=== PATIENT | male | born 1945 | race Caucasian/White ===

== ENCOUNTER 2016-08-17 13:00 | Day surgery (SDC) | payer OTHER, BC ==
[~2016-08-17] VITALS: Ht 172.7 cm; Wt 77.3 kg
[~2016-08-17 13:00] MED LIST: ADVAIR 250/501 DISK IH; DIPHENOXYLATE/1 EACH PO; LIPITOR10 MG PO; WELCHOL625 MG PO; ZYRTEC-D1 TABLE1 PO
[2016-08-17 13:52] VITALS: BP 127/78
[2016-08-17 18:45] VITALS: BP 134/66
== END 2016-08-17 19:18 | disposition home or self-care (01) ==
LOC: SDC 13:00
PROC: 08B43ZZ Excision of Right Vitreous, Percutaneous Approach (ICD-10-PCS; principal; 2016-08-17)
PROC: 08CE3ZZ Extirpation of Matter from Right Retina, Percutaneous Approach (ICD-10-PCS; principal; 2016-08-17)
DX: H35.371 Puckering of macula, right eye (principal); H35.341 Macular cyst, hole, or pseudohole, right eye; I71.4 Abdominal aortic aneurysm, without rupture; C67.9 Malignant neoplasm of bladder, unspecified; J44.9 Chronic obstructive pulmonary disease, unspecified; E78.5 Hyperlipidemia, unspecified; I10 Essential (primary) hypertension; I25.10 Atherosclerotic heart disease of native coronary artery without angina pectoris; M19.90 Unspecified osteoarthritis, unspecified site; Z88.6 Allergy status to analgesic agent; Z83.3 Family history of diabetes mellitus; Z82.49 Family history of ischemic heart disease and other diseases of the circulatory system; Z80.9 Family history of malignant neoplasm, unspecified; Z96.651 Presence of right artificial knee joint
CPT/HCPCS: J0690; J3300